=== PATIENT | female | born 1965 | race Caucasian/White ===

== ENCOUNTER 2018-03-04 09:07 | Observation (INO) | payer OTHER ==
[~2018-03-04] VITALS: Ht 167.6 cm; Wt 86.6 kg
[~2018-03-04 09:07] MED LIST: CARI350T PO; ESTR0.5T PO; HYDROmorphone 2 MG/ML VIAL IV PRN; IV RINGERS,LACTATED 1000ML 1,000 ML IV SCH; LIDOCAINE 1% PF 2 ML VIAL. ID PRN; LORA10TA68 PO; MORPHINE SULFATE 2 MG/ML VIAL. IV PRN; ONDANSETRON PF 4 MG/2 ML VIAL. IV PRN; POTA10TA12 PO; PROCHLORPERAZINE 10 MG/2 ML VIAL. IV PRN; PROG100C15 PO; TRIA1TAB5 PO; fentaNYL PF VIAL 100 MCG/2 ML VIAL IV PRN
[2018-03-04 09:57] LABS: U PREG PATIENT NEGATIVE (NEG)
[2018-03-04] MEDS ORDERED: fentaNYL PF VIAL 100 MCG/2 ML VIAL ONE (10:05)
[2018-03-04] MEDS ORDERED: PROPOFOL 20 ML IV ONE (10:06)
[2018-03-04] MEDS ORDERED: ONDANSETRON PF 4 MG/2 ML VIAL. ONE (10:06)
[2018-03-04] MEDS ORDERED: KETOROLAC 30 MG/ML INJ FOR OR. INJ ONE (10:06)
[2018-03-04] MEDS ORDERED: DEXAMETHASONE SOD PHOS 20 MG/5 ML VIAL. ONE (10:06)
[2018-03-04] MEDS ORDERED: ESMOLOL 100 MG/10 ML VIAL. IV ONE (11:23)
[2018-03-04] MEDS ORDERED: ROPIVacaine 0.2% PF 10 ML VIAL. ONE ×2 (11:39→11:42)
--- NOTE | 2018-03-04 11:48 | DISCH ---
DISCHARGE INSTRUCTIONS Condition on Discharge Condition on Discharge: Stable Activity After Discharge Activity Instructions for Disc: Activity as tolerated Bathing Instructions: Shower-keep dressing dry Weight Bearing Status after Di: As tolerated Diet after Discharge Diet after Discharge: Regular Wound Incision Care Wound/Incision Care: Ice to area for comfort, Change dressing (May remove dressing in 3 days may then shower) Contacting the after DC Call your doctor for: Concerns you may have Follow-Up Follow up with: Jocelin 1 week JUSTIN MCGEE MD Mar 04, 2018 11:48
[2018-03-04] MEDS ORDERED: HYDR-3165 PO (11:50)
[2018-03-04] MEDS ORDERED: METOPROLOL TARTRATE 5 MG/5 ML VIAL. IVP ONE ×2 (12:00→12:02)
--- NOTE | 2018-03-04 12:14 | EKG ---
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
[2018-03-04] MEDS: fentaNYL PF VIAL 100 MCG/2 ML VIAL IV PRN ×2 (12:29→14:01)
[2018-03-04 12:38] LABS: CALCIUM 9.1 mg/dL (8.5-10.1); CREATININE 1.1 mg/dL (0.6-1.0); GFR 52.4; MAGNESIUM 1.7 mg/dL (1.8-2.4); POTASSIUM 3.7 mmol/L (3.5-5.1)
[2018-03-04] MEDS ORDERED: MAGNESIUM SULFATE 2GM 50 ML IV ONE (12:45)
[2018-03-04] MEDS ORDERED: METOPROLOL TART IMMED RELEASE 25 MG TABLET. PO ONE (12:45)
--- NOTE | 2018-03-04 13:24 | PDOC2 ---
RASHID DALTON SCOURING MACHINE TENDER 03/04/18 1324: CARDIAC CONSULT DATE OF CONSULT Date of Consult DATE: 03/04/18 TIME: 12:58 REASON FOR CONSULT Reason for Consult: AFIB RVR REFERRING PHYSICIAN Referring Physician: Yessenia SOURCE Source: Chart review, Patient HISTORY OF PRESENT ILLNESS HISTORY OF PRESENT ILLNESS This is a pleasant 52 yo female admitted for planned right hip arthroscopic procedure. Tolerated procedure well but developed AFIB RVR post operatively. Denies any prior hx of arrhythmia and no hx of cardiac disease. She takes triamterene for her hx of renal stones and also takes statin for HLP. She also takes HRT for uterine bleed and is due for hysterectomy on 03/18/2018. She has been taking phentermine for wt loss with last dose yesterday. Denies any PUD, VTE, and no recent falls or injury. At home prior to this surgery she has not been having any chest pain, palpitations, dizziness. Denies any SOA or GARCIA. PAST MEDICAL HISTORY Cardiovascular: Hyperlipidemia Pulmonary: No pertinent hx CENTRAL NERVOUS SYSTEM: Other (no ) GI: No pertinent hx Heme/Onc: No pertinent hx Hepatobiliary: No pertinent hx Psych: No pertinent hx Musculoskeletal: Osteoarthritis Renal/: Other (nephrolithiasis) Endocrine: Other (HRT) Dermatology: No pertinent hx PAST SURGICAL HISTORY Past Surgical History: Appendectomy, Other (cystoscopy with urinary stone extraction. ) FAMILY HISTORY Family History: Heart Disease (father) SOCIAL HISTORY Smoke: No ALCOHOL: none Drugs: None Lives: with Family CURRENT MEDICATIONS CURRENT MEDICATIONS Current Medications Medications (Trade) Dose Ordered Sig/John Route PRN Reason Start Time Stop Time Status Last Admin Dose Admin Ringer's Solution 1,000 ml @ 30 mls/hr Q24H IV 03/04/18 07:00 03/04/18 18:59 03/04/18 10:12 Fentanyl Citrate (Fentanyl 2ml Vial) 25 mcg PRN Q5MIN PRN IV MILD PAIN 03/04/18 07:00 03/05/18 06:59 03/04/18 12:29 Cefazolin Sodium/ Dextrose 50 ml @ 100 mls/hr 1X PREOP PRN IV PRIOR TO PROCEDURE 03/04/18 06:00 03/04/18 18:00 03/04/18 10:46 Ropivacaine (Naropin 0.2%) 10 ml STK-MED ONCE .ROUTE 03/04/18 11:39 03/04/18 11:40 DC 03/04/18 11:55 Ropivacaine (Naropin 0.2%) 10 ml STK-MED ONCE .ROUTE 03/04/18 11:42 03/04/18 11:43 DC 03/04/18 11:55 Metoprolol Tartrate (Lopressor Vial) 5 mg 1X ONCE IVP 03/04/18 12:00 03/04/18 12:05 DC 03/04/18 12:14 ALLERGIES ALLERGIES: Coded Allergies: No Known Drug Allergies (Unverified , 02/28/18) ROS Review of System 14 point ROS evaluated with pertinent positives noted per HPI PHYSICAL EXAM General: Alert, Oriented X3, Cooperative, No acute distress HEENT: Atraumatic, Mucous membr. moist/pink Lungs: Clear to auscultation, Normal air movement Heart: Normal S1, Normal S2, No murmurs, Other (Coarse AFIB with RVR. ) Abdomen: Soft, No tenderness Extremities: No cyanosis, No edema Skin: No breakdown, No significant lesion Neuro: Normal speech, Sensation intact Psych/Mental Status: Mental status NL, Other (anxious) MUSCULOSKELETAL: Other (S/P right hip surgery) VITALS VITALS Vital Signs Date Time Temp Pulse Resp B/P (MAP) Pulse Ox O2 Delivery O2 Flow Rate FiO2 03/04/18 12:29 20 97 03/04/18 12:14 139 125/80 03/04/18 10:10 97.0 Room Air 97.0 LABS Lab: Laboratory Tests Test 03/04/18 09:30 03/04/18 12:20 Urine Test Negative (NEG) Sodium Level 142 mmol/L (136-145) Potassium Level 3.7 mmol/L (3.5-5.1) Chloride Level 104 mmol/L (98-107) Carbon Dioxide Level 28 mmol/L (21-32) Anion Gap 10 (6-14) Blood Urea Nitrogen 13 mg/dL (7-20) Creatinine 1.1 mg/dL (0.6-1.0) Estimated GFR (Cockcroft-Gault) 52.4 Glucose Level 97 mg/dL (70-99) Calcium Level 9.1 mg/dL (8.5-10.1) Magnesium Level 1.7 mg/dL (1.8-2.4) ASSESSMENT/PLAN ASSESSMENT/PLAN 1. Coarse AFIB with RVR: suspect due to surgical stress response with underlying use of phentermine. 2. Hypomagnesemia 3. Hx of hypokalemia: due to triamterene use, utilize for past hx of urinary lithiasis. 4. HLP 5. HRT: for uterine bleed. 6. Obesity 7. S/P right hip arthroscopy with IT band release: per ortho Recommendations 1. Completely discontinue phentermine. IV lopressor x1.DC triamterene and start on metoprolol PO. 2. TTE, TSH. 3. Replace Mg. 4. ECASA 325 mg po daily if ok with ortho. 5. Plan for outpt event monitor and note afib burden. 6. Discussed pathophysiology with pt and spouse and treatment plan. 7. Pt anxious and irritated. Pt is insistent to go home, potentially may go home this evening if rhythm is stable, meantime transfer to [facility]. DOTTY RONDON MD 03/04/18 1519: CARDIAC CONSULT ASSESSMENT/PLAN ASSESSMENT/PLAN Patient seen and examined. Agree with MANAGER CORPORATE's assessment and plan. Patient presently back in sinus rhythm. 2-D echo showed LVEF 50-55%. Agree with aspirin and beta blockers for now and plan for outpatient event monitor to assess atrial fibrillation burden to guide further management Okay for discharge from cardiac standpoint Thank you for your consultation RASHID DALTON APRN Mar 04, 2018 13:24 DOTTY RONDON MD Mar 04, 2018 15:19
--- NOTE | 2018-03-04 14:04 | PDOC4 ---
Operative Note Operative Note Date of surgery: 03/04/2018 Preoperative diagnosis: Refractory trochanteric bursitis right hip Postoperative diagnosis: Same Operative procedure: Right hip arthroscopy release of iliotibial band debridement trochanteric bursa Surgeon: Jocelin Anesthesia: Gen. Estimated blood loss: 15 mL Complications: None Operative indications: Patient is a 52-year-old female with refractory trochanteric bursitis recurrent post-multiple injections stretching program and activity modification. I gone over with her the possibility of more definitive treatment with release of the iliotibial band the rationale for this procedure the results between arthroscopic and open release and the possibility of infection nerve or blood vessel damage continued pain medical or other anesthetic complications among others all her questions were answered she wishes to proceed with surgical evaluation and treatment. Operative text: Patient was identified procedure verified patient placed in the supine position on the operating table. After adequate amounts of general anesthesia were administered she was placed decubitus right side up all bony prominences were well-padded and the right hip was prepped and draped in standard sterile fashion. After timeout was performed patient procedure identified and verified a spinal needle was placed for localization at the most prominent part of the trochanter also localizing anterior posterior dimension of the greater trochanter of the femur. Arthroscopic portals were placed above the insertion of the gluteus medius and an equal amount down below the most prominent part of the greater trochanter. Tissue was cleared off the iliotibial band bleeding points controlled by bipolar electrocautery and the bipolar electrocautery was used to make a longitudinal incision in the iliotibial band connecting the 2 portals the iliotibial band opened up widely trochanteric bursa was debrided with arthroscopic shaver and further with electrocautery bipolar and was noted to be very irritated prior to debridement. The pressure was relieved entirely from the greater trochanter and examined in all degrees of internal/external rotation gluteus medius insertion was noted to be intact. Fluid was drained from the arthroscopic portals which were closed with nylon suture total of 20 mL of half percent plain Marcaine were injected sterile dressings were applied patient was returned to recovery room. She underwent additional testing because during the closure of the procedure she was noted to go into some atrial fibrillation and therefore cardiology consultation was obtained and additional testing including an echocardiogram. She was otherwise clinically stable throughout the procedure but undergoing the atrial fibrillation workup postoperatively JUSTIN MCGEE MD Mar 04, 2018 14:04
[2018-03-04 15:00] VITALS: BP 136/60
--- NOTE | 2018-03-04 15:02 | CARD ---
MR#: [id number] Date of Study: 03/04/2018 Ordering Physician: RASHID DALTON, Referring Physician: JUSTIN MCGEE, Tech: Antonietta Medellin APPROVED REPORT EXAM: Two-dimensional and M-mode echocardiogram with Doppler and color Doppler. Other Information Quality : GoodHR: 67bpm INDICATION Atrial Fibrillation 2D DIMENSIONS RVDd2.3 (2.9-3.5cm)Left Atrium(2D)3.3 (1.6-4.0cm) IVSd0.8 (0.7-1.1cm)Aortic Root(2D)2.7 (2.0-3.7cm) LVDd5.0 (3.9-5.9cm)LVOT Diameter2.1 (1.8-2.4cm) PWd0.9 (0.7-1.1cm)LVDs3.0 (2.5-4.0cm) FS (%) 39.3 %SV82.2 ml LVEF(%)69.6 (>50%) Aortic Valve AoV Peak Cam.129.9cm/sAoV VTI25.2cm AO Peak GR.6.8mmHgLVOT VTI 19.20cm AO Mean GR.4mmHg Mitral Valve MV E Gkqoyude04.8cm/sMV DECEL [id number] MV A Zztduvwv98.6cm/sE/A Ratio1.0 TDI Lateral E' P. V8.62cm/sMedial E' P. V6.76cm/s E/Lateral E'7.4E/Medial E'9.4 Tricuspid Valve TR P. Rbcihzhf814mb/sRAP HARKBADT6euWy TR Peak Gr.53waDpJHTA79rcKt Pulmonary Vein S1 Yzerthbm25.8cm/sS2 Tbxmtbmv32.18cm/s D2 Audyabzb01.2cm/s LEFT VENTRICLE The left ventricle is normal size. There is normal left ventricular wall thickness. The left ventricu lar systolic function is normal and the ejection fraction is within normal range. The Ejection Fracti on is 50-55%. There is normal LV segmental wall motion. Transmitral Doppler flow pattern is Grade II- pseudonormal filling dynamics. RIGHT VENTRICLE The right ventricle is normal size. There is normal right ventricular wall thickness. The right ventr icular systolic function is normal. ATRIA The left atrium size is normal. The right atrium size is normal. The interatrial septum is intact wit h no evidence for an atrial septal defect or patent foramen ovale as noted on 2-D or Doppler imaging. AORTIC VALVE The aortic valve is normal in structure and function. Doppler and Color Flow revealed trace aortic re gurgitation. Calculated aortic valve area is 2.7 cm2 with maximum pressure gradient of 7 mmHg and josep n pressure gradient of 4 mmHg. MITRAL VALVE The mitral valve is normal in structure and function. There is no mitral valve stenosis. Doppler and Color Flow revealed trace mitral regurgitation. TRICUSPID VALVE The tricuspid valve is normal in structure and function. Doppler and Color Flow revealed trace tricus pid regurgitation. There is no tricuspid valve stenosis. PULMONIC VALVE The pulmonic valve is not well visualized. Doppler and Color Flow revealed trace pulmonic valvular re gurgitation. There is no pulmonic valvular stenosis. GREAT VESSELS The aortic root is normal in size. Normal pulmonary venous flow (Doppler). The IVC is normal in size and collapses >50% with inspiration. PERICARDIAL EFFUSION There is no evidence of significant pericardial effusion. Critical Notification Critical Value: No <Conclusion> The left ventricular systolic function is normal and the ejection fraction is within normal range. Th e Ejection Fraction is 50-55%. There is normal LV segmental wall motion. Signed by : Romero Crowley, Electronically Approved : 03/04/2018 15:01:28
[2018-03-04] MEDS ORDERED: ATOR10TA PO (16:40)
[2018-03-04] MEDS ORDERED: METO25TA4 PO (16:47)
[2018-03-04 16:49] LABS: HEMATOCRIT 40.4 % (36.0-47.0); HEMOGLOBIN 13.3 g/dL (12.0-15.5); RED BLOOD COUNT 4.9 x10^6/uL (3.50-5.40); RED CELL DISTRIBUTION WIDTH 13.8 % (11.5-14.5); WHITE BLOOD COUNT 10.2 x10^3/uL (4.0-11.0)
[2018-03-04] MEDS ORDERED: ASPI325T8 PO (17:01)
[2018-03-04] MEDS ORDERED: METOPROLOL TART IMMED RELEASE 25 MG TABLET. PO SCH (21:00)
[2018-03-05] MEDS ORDERED: DIGOXIN 250 MCG TABLET. PO SCH (09:00)
== END 2018-03-04 17:51 | disposition home or self-care (01) ==
LOC: SURG 09:07 → 2 NORTH 13:51
PROVIDERS: ADMIT Orthopaedic Surgery; ATTEND Orthopaedic Surgery
DX: M70.61 Trochanteric bursitis, right hip (principal); I48.91 Unspecified atrial fibrillation; E78.5 Hyperlipidemia, unspecified; E66.9 Obesity, unspecified; E83.42 Hypomagnesemia; Z87.442 Personal history of urinary calculi; Z90.710 Acquired absence of both cervix and uterus; Z82.49 Family history of ischemic heart disease and other diseases of the circulatory system
CPT/HCPCS: 29863; 36415; 80048; 81025; 83735; 84443; 85027; 93005; 93306; G0378; G0379; J0690; J1100; J1885; J2405; J2704; J2795; J3010; J3475; J3490

== ENCOUNTER 2018-06-16 13:39 | Day surgery (SDC) | payer OTHER ==
[~2018-06-16 13:39] MED LIST changes: +APIX5TAB PO; +ASPI325T8 PO; +ATOR10TA PO; +FLEC50TA PO; +HYDR-3165 PO; +METO25TA4 PO; +TOLT2TAB4 PO
[2018-06-16] MEDS ORDERED: PROPOFOL 20 ML IV ONE (14:41)
[2018-06-16] MEDS ORDERED: BENZOCAINE ONE 20% MUCOSAL SPRAY. MM (14:45)
[2018-06-16] MEDS ORDERED: LIDOCAINE 2% VISCOUS 15 ML SOLUTION. SWSW ONE (14:45)
[2018-06-16] MEDS ORDERED: LIDOCAINE 2% JELLY 6ML IN APPLICATOR. MM ONE (15:00)
--- NOTE | 2018-06-16 15:30 | CARD ---
MR#: [id number] Date of Study: 06/16/2018 Ordering Physician: ANEL KOROMA, Referring Physician: DOTTY RONDON Tech: Kaila Lynch RDCS APPROVED REPORT EXAM: Transesophageal echocardiogram with color flow Doppler. INDICATION Atrial Fibrillation Reason For Test : Rule out Intracardiac Thrombus. PROCEDURE After obtaining informed consent, patient underwent transesophageal echo in the PACU. Type of Sedation : General Anesthesia Sedation was achieved with Propofol 200 intravenously. Throughout the procedure, the blood pressure, pulse oximetry, cardiac rhythm, and rate were monitored . LEFT VENTRICLE The left ventricle is normal size. There is normal left ventricular wall thickness. Left ventricle sy stolic function is low normal. The Ejection Fraction is 50-55%. There is normal LV segmental wall mot ion. No left ventricle thrombus noted on this study. There is no ventricular septal defect visualized . There is no left ventricular aneurysm. There is no mass noted in the left ventricle. RIGHT VENTRICLE The right ventricle is normal size. There is normal right ventricular wall thickness. The right ventr icular systolic function is normal. ATRIA The left atrium size is normal. The right atrium size is normal. The interatrial septum is intact wit h no evidence for an atrial septal defect or patent foramen ovale as noted on 2-D or Doppler imaging. There is no thrombus noted in the left atrial appendage. AORTIC VALVE The aortic valve is normal in structure and function. The aortic valve is trileaflet. Doppler and Col or Flow revealed no significant aortic regurgitation. There is no significant aortic valvular stenosi s. There is no aortic valvular vegetation. MITRAL VALVE The mitral valve is normal in structure and function. There is no evidence of mitral valve prolapse. There is no mitral valve stenosis. Doppler and Color-flow revealed mild mitral regurgitation. TRICUSPID VALVE The tricuspid valve is normal in structure and function. Doppler and Color Flow revealed trace to mil d tricuspid regurgitation. There is no tricuspid valve prolapse or vegetation. There is no tricuspid valve stenosis. PULMONIC VALVE The pulmonary valve is normal in structure and function. Doppler and Color Flow revealed no pulmonic valvular regurgitation. There is no pulmonic valvular stenosis. GREAT VESSELS The aortic root is normal in size. The ascending aorta is normal in size. The IVC is normal in size a nd collapses >50% with inspiration. PERICARDIAL EFFUSION There is no evidence of significant pericardial effusion. There is no pleural effusion. Critical Notification Critical Value: No <Conclusion> Left ventricle systolic function is low normal. The Ejection Fraction is 50-55%. There is normal LV segmental wall motion. Doppler and Color-flow revealed mild mitral regurgitation. The interatrial septum is intact with no evidence for an atrial septal defect or patent foramen ovale as noted on 2-D or Doppler imaging. No ANGELINA thrombus. Signed by : Anel Koroma, Electronically Approved : 06/16/2018 15:30:02
[2018-06-16 15:45] VITALS: BP 118/62
== END 2018-06-16 15:49 | disposition home or self-care (01) ==
LOC: SURG 13:39
PROVIDERS: ATTEND Internal Medicine Cardiovascular Disease
DX: I08.1 Rheumatic disorders of both mitral and tricuspid valves (principal); I48.0 Paroxysmal atrial fibrillation; E78.5 Hyperlipidemia, unspecified; Z79.899 Other long term (current) drug therapy; Z79.82 Long term (current) use of aspirin; Z90.49 Acquired absence of other specified parts of digestive tract; Z98.890 Other specified postprocedural states; Z90.710 Acquired absence of both cervix and uterus; Z82.49 Family history of ischemic heart disease and other diseases of the circulatory system
CPT/HCPCS: 93312; 93325; J2704

== ENCOUNTER → 2019-11-13 | Outpatient (CLI) | payer OTHER ==
[~2019-11-13] MED LIST changes: -HYDROmorphone 2 MG/ML VIAL IV PRN; -IV RINGERS,LACTATED 1000ML 1,000 ML IV SCH; -LIDOCAINE 1% PF 2 ML VIAL. ID PRN; -MORPHINE SULFATE 2 MG/ML VIAL. IV PRN; -ONDANSETRON PF 4 MG/2 ML VIAL. IV PRN; -PROCHLORPERAZINE 10 MG/2 ML VIAL. IV PRN; -fentaNYL PF VIAL 100 MCG/2 ML VIAL IV PRN
--- NOTE | 2019-11-13 09:01 | CARD ---
MR#: [id number] Date of Study: 11/13/2019 Ordering Physician: DOTTY RONDON, Referring Physician: DOTTY RONDON, Tech: Marilou Ashley RDCS APPROVED REPORT EXAM: Two-dimensional and M-mode echocardiogram with Doppler and color Doppler. Other Information Quality : Good Rhythm : Atrial Fibrillation INDICATION Atrial Fibrillation 2D DIMENSIONS RVDd2.4 (2.9-3.5cm)Left Atrium(2D)3.8 (1.6-4.0cm) IVSd0.8 (0.7-1.1cm)Aortic Root(2D)2.7 (2.0-3.7cm) LVDd4.8 (3.9-5.9cm)LVOT Diameter2.0 (1.8-2.4cm) PWd1.0 (0.7-1.1cm)LVDs3.4 (2.5-4.0cm) FS (%) 27.8 %SV56.8 ml LVEF(%)53.8 (>50%) Aortic Valve AoV Peak Cam.128.7cm/sAoV VTI25.5cm AO Peak GR.6.6mmHgLVOT VTI 21.63cm AO Mean GR.4mmHgAVA (VTI)2.79cm2 Mitral Valve MV E Xwnloiit42.4cm/sMV DECEL YZUC743as MV A Qczxbnbq95.8cm/sE/A Ratio2.0 TDI Lateral E' P. V12.74cm/sMedial E' P. V9.07cm/s E/Lateral E'6.5E/Medial E'9.1 Tricuspid Valve TR P. Ydksywxx416tm/sRAP XJRLFEDB1rzEd TR Peak Gr.49ydBjCWDV63miVl Pulmonary Vein S1 Weynukmt47.5cm/sS2 Mcbqbuks93.31cm/s D2 Knmvjutx73.3cm/s LEFT VENTRICLE The left ventricle is normal size. There is normal left ventricular wall thickness. The left ventricu lar systolic function is normal and the ejection fraction is within normal range. The Ejection Fracti on is 55-60%. There is normal LV segmental wall motion. The left ventricular diastolic function and f illing is normal for age. RIGHT VENTRICLE The right ventricle is normal size. The right ventricular systolic function is normal. ATRIA The left atrium size is normal. The right atrium size is normal. The interatrial septum is intact wit h no evidence for an atrial septal defect or patent foramen ovale as noted on 2-D or Doppler imaging. AORTIC VALVE The aortic valve is normal in structure and function. Doppler and Color Flow revealed no significant aortic regurgitation. There is no significant aortic valvular stenosis. MITRAL VALVE The mitral valve is normal in structure and function. There is no evidence of mitral valve prolapse. There is no mitral valve stenosis. Doppler and Color-flow revealed trace mitral regurgitation. TRICUSPID VALVE The tricuspid valve is normal in structure and function. The PA pressure was estimated at 27 mmHg. Th ere is no tricuspid valve stenosis. PULMONIC VALVE The pulmonary valve is normal in structure and function. Doppler and Color Flow revealed no pulmonic valvular regurgitation. There is no pulmonic valvular stenosis. GREAT VESSELS The aortic root is normal in size. The ascending aorta is normal in size. The IVC is normal in size a nd collapses >50% with inspiration. PERICARDIAL EFFUSION There is no evidence of significant pericardial effusion. Critical Notification Critical Value: No <Conclusion> The left ventricular systolic function is normal and the ejection fraction is within normal range. Th e Ejection Fraction is 55-60%. There is normal LV segmental wall motion. Signed by : Romero Crowley, Electronically Approved : 11/13/2019 09:01:09
== END | disposition home or self-care (01) ==
LOC: ECHO 07:45
PROVIDERS: ATTEND Internal Medicine Cardiovascular Disease
DX: I48.0 Paroxysmal atrial fibrillation (principal)
CPT/HCPCS: 93306

== ENCOUNTER → 2020-06-24 | Outpatient (CLI) | payer OTHER ==
[2020-06-24] MEDS: REGADENOSON 0.4 MG/5 ML DISP.SYRIN. IV ONE (09:24)
--- NOTE | 2020-06-24 15:02 | RAD ---
MR#: [id number] Date of Study: 06/24/2020 Ordering Physician: DOTTY RONDON Referring Physician: ARLENE GARCIA Tech: LEA Sanchez APPROVED REPORT Test Type: Pharmacological Stress Nurse/Tech: Marah Velazquez RN Test Indications: A Fib Cardiac History: A Fib, HTN, See EMR. Medications: See EMR. Medical History: See EMR. Resting ECG: SR Resting Heart Rate: 50 bpm Resting Blood Pressure: 103/61mmHg Pretest Chest Pain: No chest pain Nurse/Tech Notes Lungs CTA, Heart tones regular. Consent: The procedure was explained to the patient in lay terms. Informed consent was witnessed. Rick eout was entered into [employer]. History and Stress Test performed by LEA Sanchez Pharm. Details Pharmacologic stress testing was performed using 0.4mg per 5ml of regadenoson given intravenously ove r 7-10 seconds. Stress Symptoms No chest pain or symptoms. POST EXERCISE Reason for Termination: Infusion complete Max HR: 64 bpm Max Blood Pressure: 110/59mmHg Blood Pressure response to exercise: Normal blood pressure response during stress. Heart Rate response to exercise: WNL Chest Pain: No. Arrhythmia: No. ST Change: No. INTERPRETATION Stress EKG Conclusion: Baseline EKG showed sinus rhythm. No ischemic changes at peak stress. No arr hythmias. Imaging Protocol IMAGE PROTOCOL: Rest Tc-99m/stress Tc-99m 1 day Rest: Stress: Viability: Radiopharm.Tc99m RafnfqdrbPc69b Sestamibi Ltdk12pBd 32mCi Duration 15min. 10min. Img Date 06/24/2020 06/24/2020 Inj-Img Cpdd98xsf. 60min. Rest Admin Site:IV - Left AntecubitalAdministrator:LEA Sanchez Stress Admin Site: IV - Left AntecubitalAdministrator: LEA Sanchez STRESS DATA End Diast. Vol.81.0mlAv. Heart Rate65.0bpm End Syst. Vol.15.0mlCO Index BSA0.0L/min Myocardial Luhc756.0gEject. Zjmzjyhe40.0% Stress Rates Pk. Fill Rate3.81EDV/secLVtime Pk. Fill 168.62msec Pk. Empty Rate4.30ESV/secLVtime Pk. Ielru412.14msec 1/3 Pk. Fill1.67EDV/sec Stress Scores Regional WT0.00Summed WT1.00 Regional WM0.00Summed WM0.00 Study quality was good. Left Ventricular size was Normal at Rest and Stress. Lung uptake was . Left Ventricular ejection fraction is 79%. The rest and stress images show normal perfusion, normal contraction and thickening. LV Perf. Quant 17 Seg. SSS1.00 17 Seg. SRS1.00 17 Seg. SDS0.00 Stress Defect Extent (% LAD)0.00Rest Defect Extent (% LAD)0.00Rev. Defect Extent (% LAD)0.00 Stress Defect Extent (% LCX) 0.00Rest Defect Extent (% LCX)0.00Rev. Defect Extent (% LCX)0.00 Stress Defect Extent (% RCA)0.00Rest Defect Extent (% RCA)0.00Rev. Defect Extent (% RCA)0.00 Stress Defect Extent (% TREVOR)0.00Rest Defect Extent (% TREVOR)0.00Rev. Defect Extent (% TREVOR)0.00 Conclusion 1. Regadenoson cardioisotope stress test did not show any evidence of ischemia or infarct. 2. Normal left ventricular systolic function with ejection fraction calculated at 79%. 3. Low risk for cardiac events. Signed by : Dotty Rondon, Electronically Approved : 06/24/2020 15:01:48
== END ==
LOC: NM 09:32
PROVIDERS: ATTEND Internal Medicine Cardiovascular Disease
DX: I48.0 Paroxysmal atrial fibrillation (principal); I10 Essential (primary) hypertension
CPT/HCPCS: 78452; 93017; A9500; J2785